=== PATIENT | female | born 1965 | race Hispanic/Latino ===

== ENCOUNTER 2021-06-17 08:03 | Inpatient (IN) | payer BC ==
[~2021-06-17] VITALS: Ht 157.5 cm; Wt 97.5 kg
[2021-06-17] VITALS (7 sets, daily range): BP systolic 137–164; BP diastolic 98–113
[2021-06-17] MEDS ORDERED: SODIUM CHLORIDE 0.9% 1000ML 1,000 ML IV STA (08:18)
[2021-06-17 08:25] LABS: BASOPHILS % 0.4 % (0.0-1.0); EOSINOPHILS # (AUTO) 0.1 (0.0-0.4); EOSINOPHILS % 1.2 % (0.0-6.0); HEMATOCRIT 37.8 % (34.2-44.1); HEMOGLOBIN 12.7 g/dL (12.0-16.0); LYMPHOCYTES # (AUTO) 2.6 (1.0-3.2); MEAN CORPUSCULAR HGB CONC 33.6 g/dL (31-35); MEAN CORPUSCULAR VOLUME 86.3 fL (81-99); MONOCYTES # (AUTO) 0.7 (0.2-0.8); MONOCYTES % 8.7 % (4.4-11.3); NEUTROPHILS # (AUTO) 4.2 (2.1-6.9); NEUTROPHILS % 55.6 % (38.7-80.0); PLATELET COUNT 245 x10e3/uL (140-360); RED BLOOD COUNT 4.38 x10e6/uL (3.6-5.1); RED CELL DISTRIBUTION WIDTH 12.6 % (11.7-14.4)
[2021-06-17] MEDS ORDERED: METOPROLOL TARTRATE INJ 1 MG/ML VIAL IV ONE (08:30)
[2021-06-17 08:46] LABS: ALBUMIN 3.8 g/dL (3.5-5.0); ALBUMIN/GLOBULIN RATIO 0.9 (0.8-2.0); ANION GAP 16.7 mmol/L (8-16); CALCIUM 9.5 mg/dL (8.4-10.2); CREATININE, SERUM 0.76 mg/dL (0.57-1.11); MAGNESIUM 1.8 MG/DL (1.3-2.1)
[2021-06-17 08:47] LABS: POTASSIUM 2.7 mmol/L (3.5-5.1)
[2021-06-17] MEDS ORDERED: POTASSIUM CHLORIDE 20 MEQ TAB CR PO STA ×2 (08:47→08:49)
[2021-06-17] MEDS ORDERED: METOPROLOL TARTRATE 50 MG TAB PO ONE (09:00)
[2021-06-17 09:06] LABS: CREATINE KINASE MB 0.5 ng/mL (0-5.0); THYROID STIMULATING HORMONE 4.099 uIU/mL (0.350-4.940)
[2021-06-17 09:23] LABS: INR 0.87; PROTHROMBIN TIME 12.6 seconds (11.9-14.5)
[2021-06-17 09:29] LABS: PARTIAL THROMBOPLASTIN TIME 87.6 seconds (23.8-35.5)
[2021-06-17] MEDS ORDERED: KCL 20MEQ/.9 SOD CHL 1,000 ML IV ONE (09:45)
[2021-06-17] MEDS ORDERED: ONDANSETRON HCL INJ 2MG/ML 2ML 2 MG/ML VIAL IV PRN (10:00)
[2021-06-17] MEDS ORDERED: IOPAMIDOL 370 MG/ML 200 ML INFUS..BTL INJ ONE (10:04)
[2021-06-17] MEDS ORDERED: METOPROLOL TARTRATE INJ 1 MG/ML VIAL IV PRN (10:45)
[2021-06-17 11:12] LABS: CREATINE KINASE MB 0.6 ng/mL (0-5.0)
[2021-06-17] MEDS: PIPERACILLIN/TAZOBACTAM 3.375 GM in SODIUM CHLORIDE 0.9% 50ML 50 ML IV SCH ×2 (14:00→20:08)
[2021-06-17 14:38] LABS: CREATINE KINASE MB 0.9 ng/mL (0-5.0)
[2021-06-17] MEDS ORDERED: POTASSIUM CHLORIDE 20 MEQ TAB CR PO SCH (15:00)
[2021-06-17] MEDS ORDERED: ENOXAPARIN SOD INJ 40 MG/0.4 ML SYR SC SCH (17:00)
[2021-06-17] MEDS: METOPROLOL TARTRATE 50 MG TAB PO SCH (17:00)
[2021-06-17] MEDS ORDERED: HYDRALAZINE HCL 20 MG/ML VIAL IV PRN (17:30)
[2021-06-17] MEDS ORDERED: ACETAMINOPHEN 325 MG TAB PO PRN (17:30)
[2021-06-18] VITALS: BP 150/76
[2021-06-18] MEDS: PIPERACILLIN/TAZOBACTAM 3.375 GM in SODIUM CHLORIDE 0.9% 50ML 50 ML IV SCH ×3 (02:14→14:00)
[2021-06-18] MEDS ORDERED: TRAMADOL HCL 50 MG TAB PO PRN (02:30)
[2021-06-18 04:00] VITALS: BP 127/81
[2021-06-18 05:04] LABS: BASOPHILS % 0.4 % (0.0-1.0); EOSINOPHILS # (AUTO) 0.1 (0.0-0.4); HEMATOCRIT 33.8 % (34.2-44.1); HEMOGLOBIN 11.2 g/dL (12.0-16.0); LYMPHOCYTES % 30.1 % (18.0-39.1); MEAN CORPUSCULAR HEMOGLOBIN 29.1 pg (28-32); MEAN CORPUSCULAR HGB CONC 33.1 g/dL (31-35); MEAN CORPUSCULAR VOLUME 87.8 fL (81-99); MONOCYTES # (AUTO) 0.7 (0.2-0.8); MONOCYTES % 10.6 % (4.4-11.3); NEUTROPHILS # (AUTO) 3.8 (2.1-6.9); NEUTROPHILS % 57.5 % (38.7-80.0); PLATELET COUNT 242 x10e3/uL (140-360); RED BLOOD COUNT 3.85 x10e6/uL (3.6-5.1); RED CELL DISTRIBUTION WIDTH 12.9 % (11.7-14.4)
[2021-06-18 05:26] LABS: ALBUMIN 3.3 g/dL (3.5-5.0); ANION GAP 12.6 mmol/L (8-16); CALCIUM 9.5 mg/dL (8.4-10.2); CHOL/HDL RATIO 2.6 (3.0-3.6); CREATININE, SERUM 0.71 mg/dL (0.57-1.11); POTASSIUM 3.6 mmol/L (3.5-5.1)
[2021-06-18] MEDS: METOPROLOL TARTRATE 50 MG TAB PO SCH (05:54)
[2021-06-18] MEDS ORDERED: ONDANSETRON HCL 4 MG ORAL DISINTEGRATING TAB PO PRN (07:45)
[2021-06-18 07:55] VITALS: BP 124/77
[2021-06-18 08:00] VITALS: BP 124/77
[2021-06-18] MEDS ORDERED: FAMOTIDINE 20 MG TAB PO SCH (09:00)
[2021-06-18 11:57] VITALS: BP 129/79
[2021-06-18] MEDS ORDERED: CIPRO500 MG PO (15:08)
[2021-06-18] MEDS ORDERED: FLAGYL375 MG PO (15:16)
[2021-06-18] MEDS ORDERED: METOPROLOL TART50 MG PO (15:20)
[2021-06-18 16:02] LABS: RETICULOCYTE % 1.7 % (0.8-2.2)
[2021-06-18 16:40] LABS: FERRITIN 176.2 ng/mL (4.63-204.00)
== END 2021-06-18 16:15 | disposition home or self-care (01) | DRG 392 ==
LOC: ER 08:13 → ERHOLD 08:53 → MED/SURG3 12:40
PROVIDERS: ADMIT Internal Medicine; ATTEND Internal Medicine
DX: K57.20 Diverticulitis of large intestine with perforation and abscess without bleeding (principal); E87.2 Acidosis; D68.9 Coagulation defect, unspecified; R17 Unspecified jaundice; R74.01 Elevation of levels of liver transaminase levels; R00.0 Tachycardia, unspecified; E87.6 Hypokalemia; Z20.822 Contact with and (suspected) exposure to COVID-19; Z80.3 Family history of malignant neoplasm of breast; Z80.0 Family history of malignant neoplasm of digestive organs; D64.9 Anemia, unspecified
CPT/HCPCS: 36415; 71045; 74177; 76705; 80053; 80061; 80329; 82550; 82553; 82607; 82728; 82746; 83516; 83540; 83605; 83735; 84443; 84466; 84484; 85025; 85045; 85597; 85610; 85613; 85651; 85730; 86160; 86225; 86235; 86255; 86256; 86376; 86663; 86664; 86665; 87040; 93005; 94799; 99285; J1650; J2543; J7030; Q9967; U0002